=== PATIENT | male | born 1945 | race Two or more races ===

== ENCOUNTER 2019-08-03 16:31 | Inpatient (IN) | payer MEDICAID, OTHER ==
[~2019-08-03] VITALS: Ht 165.1 cm; Wt 52.5 kg
[2019-08-03 17:28] LABS: Basophils # (auto) 0 10 ^3/uL (0-0.2); Basophils % (auto) 0.1 % (0.0-2.0); Eosinophils # (auto) 0 10 ^3/uL (0-0.8); Hemoglobin 12.2 g/dL (13.5-17.5); Monocytes # (auto) 0.8 10 ^3/uL (0-1.3); Platelet Count (auto) 460 10^3/uL (140-450)
[2019-08-03 17:29] LABS: Hematocrit 36.2 % (41.0-53.0); Lymphocytes % (auto) 7.3 % (10.0-50.0); Mean Corpuscular Hemoglobin 29.9 pg (28.0-32.0); Mean Corpuscular Hgb Conc. 33.7 g/dL (32.0-36.0); Mean Corpuscular Volume 88.9 fL (80.0-100.0); Monocytes % (auto) 5.8 % (0.0-12.0); Neutrophils # (auto) 11.9 10 ^3/uL (1.6-8.6); Neutrophils % (auto) 86.8 % (37.0-80.0); Red Blood Cells 4.07 10^6/uL (4.5-5.90); Red Cell Distribution Width 13.9 % (11.8-14.3); White Blood Cell 13.7 10^3/uL (4.4-10.8)
[2019-08-03 17:42] LABS: Albumin 3.2 g/dL (3.4-5.0); Anion Gap 11 (5-15); Blood Alcohol < 3.0 mg/dL (0-5); Blood Urea Nitrogen 24 mg/dL (7-18); Carbon Dioxide 27 mmol/L (21-32); Chloride 93 mmol/L (98-107); Magnesium 2.4 mg/dL (1.6-2.6); Potassium 4.3 mmol/L (3.5-5.1); Sodium 131 mmol/L (136-145)
[2019-08-03 17:44] LABS: INR 1.03 (0.9-1.15); Partial Thromboplastin Time 23.9 sec (23.64-32.05)
[2019-08-03 17:46] LABS: Lactic Acid w/Reflex 4.6 mmol/L (0.4-2.0)
[2019-08-03 17:47] LABS: Urine Bacteria NONE SEEN /hpf (None Seen); Urine Blood 2+ /uL (Negative); Urine Specific Gravity 1.028 (1.001-1.035); Urine WBC 1 /hpf (0 - 3)
[2019-08-03 17:48] LABS: Alanine Aminotransferase 151 U/L (16-61); Alkaline Phosphatase 379 U/L (45-117); Aspartate Aminotransferase 105 U/L (15-37); BUN/Creatinine Ratio 13.5; Bilirubin, Total 1.9 mg/dL (0.2-1.0); GFR African American 48 mL/min; GFR Non-African American 40 mL/min; Total Protein 8.9 g/dL (6.4-8.2)
[2019-08-03 17:52] LABS: Glucose 443 mg/dL (74-106)
[2019-08-03 17:55] LABS: Alcohol, Urine < 3.0 mg/dL (0-5); Amphetamine Screen, Urine NEGATIVE (NEGATIVE); Barbiturate Scree,Urine NEGATIVE (NEGATIVE); Benzodiazephine Screen, Urine NEGATIVE (NEGATIVE); Cannabinoid Screen, Urine NEGATIVE (NEGATIVE); Cocaine Screen, Urine NEGATIVE (NEGATIVE); Opiate Scree,Urine NEGATIVE (NEGATIVE); Phencyclidine Screen, Urine NEGATIVE (NEGATIVE)
[2019-08-03] MEDS ORDERED: PIPERACILLIN-TAZOB 2.25GM 50 ML IV ONE (18:00)
[2019-08-03] MEDS ORDERED: metroNIDAZOLE 500MG/100ML 100 ML IV ONE (18:00)
[2019-08-03] MEDS ORDERED: SODIUM CHLORIDE 0.9% 1,000 ML IV ONE ×2 (18:00→18:15)
[2019-08-03] MEDS ORDERED: InsuLIN REG 1unit/0.01ml Soln (100units/ml) IV ONE (18:45)
[2019-08-03] MEDS ORDERED: VANCOMYCIN PER PHARMACY 0 MG IV SCH (19:15)
[2019-08-03] MEDS ORDERED: ONDANSETRON HCL 4 MG/2 ML VIAL IV PRN (19:15)
[2019-08-03] MEDS ORDERED: DEXTROSE (50%) 50ML SYRG IV PRN (19:15)
[2019-08-03] MEDS ORDERED: NITROGLYCERIN 0.4 MG SL TAB SL PRN (19:15)
[2019-08-03] MEDS ORDERED: MORPHINE SULF INJ 2 MG/ML SYRINGE 1ML IV PRN ×2 (19:15)
[2019-08-03] MEDS: SODIUM CHLORIDE 0.9% 1,000 ML IV SCH (19:50)
[2019-08-03] MEDS: levoFLOXacin 500MG 100 ML IV SCH (19:55)
[2019-08-03] MEDS: ACCU-CHEK COMFORT CURVE STRIP VI SCH (20:17)
[2019-08-03] MEDS: InsuLIN REG 1unit/0.01ml Soln (100units/ml) SC SCH (20:18)
[2019-08-03 20:40] VITALS: BP 129/73
[2019-08-03] MEDS ORDERED: ACETAMINOPHEN 650 MG RECT SUPP PR ONE (20:40)
--- NOTE | 2019-08-03 20:40 | NUR ---
Admit to [facility] KRISTEN AYALA admitted to [facility] via gurney on desk monitor. Patient transferred to bed, connected to unit monitoring , and weighed by bed scale. Patient is lethargic, fatigued, and not answering questions. Gusman cath draining yellow urine to gravity. Normal Saline infusing at 125 ml/h. Patient was just given Tylenol suppository prior to arriving on the unit. Physical assessment completed, see interventions. Attempted to Instruct on POC and to call for assist as needed. bed is in the lowest position with side rails up x2, Bed alarm on. Cooling measures in place.
[2019-08-03] MEDS ORDERED: ACETAMINOPHEN 650 MG RECT SUPP PR PRN (20:45)
--- NOTE | 2019-08-03 20:50 | NUR ---
Bed bath performed Gown changed. Partial linen change.
[2019-08-03] MEDS ORDERED: VANCOMYCIN 1GM/250ML 250 ML IV ONE (21:00)
[2019-08-04] VITALS: BP 116/65
[2019-08-04] MEDS: metroNIDAZOLE 500MG/100ML 100 ML IV SCH ×3 (01:23→17:57)
[2019-08-04 04:00] VITALS: BP 121/66
[2019-08-04] MEDS: InsuLIN REG 1unit/0.01ml Soln (100units/ml) SC SCH ×6 (04:00→21:27)
[2019-08-04 05:16] LABS: Basophils # (auto) 0 10 ^3/uL (0-0.2); Basophils % (auto) 0.4 % (0.0-2.0); Eosinophils # (auto) 0 10 ^3/uL (0-0.8); Eosinophils % (auto) 0.2 % (0.0-7.0); Hematocrit 31.5 % (41.0-53.0); Hemoglobin 10.7 g/dL (13.5-17.5); Lymphocytes # (auto) 2.1 10 ^3/uL (0.4-5.4); Mean Corpuscular Hemoglobin 30.1 pg (28.0-32.0); Mean Corpuscular Hgb Conc. 33.9 g/dL (32.0-36.0); Mean Corpuscular Volume 88.7 fL (80.0-100.0); Monocytes # (auto) 1.3 10 ^3/uL (0-1.3); Monocytes % (auto) 9.6 % (0.0-12.0); Neutrophils # (auto) 10.5 10 ^3/uL (1.6-8.6); Neutrophils % (auto) 74.8 % (37.0-80.0); Platelet Count (auto) 380 10^3/uL (140-450); Red Blood Cells 3.55 10^6/uL (4.5-5.90); Red Cell Distribution Width 14.1 % (11.8-14.3)
[2019-08-04 05:40] LABS: Calcium 8.3 mg/dL (8.5-10.1); Potassium 3.6 mmol/L (3.5-5.1)
[2019-08-04 05:42] LABS: BUN/Creatinine Ratio 16.1
[2019-08-04] MEDS: SODIUM CHLORIDE 0.9% 1,000 ML IV SCH ×3 (06:05→13:22)
[2019-08-04] MEDS: ACCU-CHEK COMFORT CURVE STRIP VI SCH ×6 (06:05→21:27)
--- NOTE | 2019-08-04 07:00 | NUR ---
END OF SHIFT PATIENT IS LAYING IN BED WITH EYES CLOSED. NO SOB, DISTRESS OR PAIN NOTED. VS STABLE. WILL GIVE REPORT AND ENDORSE CARE TO THE DAY SHIFT RN.
[2019-08-04 07:40] VITALS: BP 126/66
--- NOTE | 2019-08-04 08:00 | NUR ---
OPENING SHIFT NOTE: Received report from NOC RNSari. Assumed care of patient. Received patient lying in bed, connected to bedside monitor, no s/s of distress noted. Patient is Greek speaking. Denies pain when asked by shaking head. Patient opens eyes to name, but doesn't answer questions when asked and inconsistent in following commands. Patient on RA with O2 sats 98%. IVF of NS running at 125ml/hr in left hand #20 and has additional IV to left wrist #20. Gusman draining to gravity yellow urine output. Patient pending GI consult for abdominal pain. Bed in lowest position, rails x2 up and call light within reach. Will continue to monitor q1hr/PRN.
--- NOTE | 2019-08-04 09:30 | NUR ---
MD: Dr Nelson to see patient for GI consult. Orders received.
--- NOTE | 2019-08-04 10:30 | NUR ---
MD: Dr Nevarez at bedside to see patient. Orders received. MD to attempt to contact family to get patient's baseline neuro status.
--- NOTE | 2019-08-04 11:20 | NUR ---
T/C from patient's family. Password verified. Updated family on plan of care. Family states that prior to admission patient was able to have full conversations with them and when he stopped talking they brought him to the ER.
[2019-08-04 11:40] VITALS: BP 118/66
[2019-08-04] MEDS ORDERED: DEXTROSE (50%) 50ML SYRG IV PRN (13:00)
[2019-08-04] MEDS ORDERED: ASPirin-EC 81 mg tab PO ONE (13:15)
[2019-08-04] MEDS ORDERED: PANTOPRAZOLE 40 MG TAB PO ONE (13:15)
--- NOTE | 2019-08-04 13:15 | NUR ---
1315 medications held due to patient not responding and following directions. Swallow eval pending.
--- NOTE | 2019-08-04 14:13 | NUR ---
Patient to radiology for CT chest via bed on test tube maker.
--- NOTE | 2019-08-04 14:40 | NUR ---
Patient returned from radiology escorted by MERNA Leavitt RN. Per RN, patient didn't respond when spoken to in azeri. Patient remains alert but unresponsive. Updated family on telephone via aircraft skin burnisher, Shania parachute mender, on plan of care. All questions answered.
[2019-08-04] MEDS ORDERED: VANCOMYCIN 1GM/250ML 250 ML IV SCH (15:00)
[2019-08-04 15:40] VITALS: BP 117/65
--- NOTE | 2019-08-04 15:46 | NUR ---
Dayana, Speech therapy, at bedside doing swallow eval.
--- NOTE | 2019-08-04 15:52 | NUR ---
ATTEMPTED SWALLOW EVALUATION. GUEST ASSOCIATE ASSISTING WITH FRENCH TRANSLATION. PATIENT REFUSED TO OPEN MOUTH FOR SWALLOW EVALUATION. SEVERAL TYPES OF BOLUS ATTEMPTED WITH NO RESPONSE FROM PATIENT. UNABLE TO DETERMINE IF PATIENT IS SAFE FOR PO INTAKE. NURSING NOTIFIED.
--- NOTE | 2019-08-04 16:46 | NUR ---
PT at bedside to attempt eval. Asked to hold off due to language barrier and inability to follow commands. PT will eval tomorrow if appropriate.
--- NOTE | 2019-08-04 19:00 | NUR ---
CLOSING SHIFT NOTE: Patient resting in bed, no s/s of pain. Patient remain alert but unresponsive. Report given to NOC Sari SILVA.
[2019-08-04] MEDS: levoFLOXacin 500MG 100 ML IV SCH (19:18)
[2019-08-04 20:00] VITALS: BP 98/59
--- NOTE | 2019-08-04 20:00 | NUR ---
Shift Opening Note Received patient laying in bed with eyes closed. Open eyes when touched and spoken to occasionally, Does not answer questions or follow commands. Gusman cath draining yellow urine to gravity. Normal Saline infusing at 100 ml/h. Physical assessment completed, see interventions. Attempted to Instruct on POC and to call for assist as needed. Bed is in the lowest position with side rails up x2, Bed alarm on.
[2019-08-04] MEDS ORDERED: LORazepam 2MG/ML-1ML VIAL IV PRN (21:00)
--- NOTE | 2019-08-04 21:00 | NUR ---
DR. PINEDA AT BEDSIDE ASSESSING PATIENT
[2019-08-04] MEDS: ATORVASTATIN 20 MG TAB PO SCH (21:25)
--- NOTE | 2019-08-04 21:30 | NUR ---
SPOKE WITH FAMILY UPDATED THEM ON PATIENTS STATUS AND POC.
[2019-08-04 23:32] LABS: Albumin 2.3 g/dL (3.4-5.0)
[2019-08-04 23:35] LABS: Bilirubin, Direct 1.3 mg/dL (0-0.2); Bilirubin, Total 1.7 mg/dL (0.2-1.0); Total Protein 6.8 g/dL (6.4-8.2)
[2019-08-05] VITALS (7 sets, daily range): BP systolic 107–128; BP diastolic 58–73
--- NOTE | 2019-08-05 01:30 | NUR ---
MORNING HYGIENE CARE FULL BED BATH PERFORMED USING WARM SOAPY WASH CLOTHES. GOWN CHANGED. PARTIAL LINEN CHANGED. PATIENT REPOSITIONED FOR COMFORT. TOLERATED IT WELL.
[2019-08-05] MEDS: metroNIDAZOLE 500MG/100ML 100 ML IV SCH ×3 (01:39→18:07)
[2019-08-05 05:35] LABS: Basophils # (auto) 0 10 ^3/uL (0-0.2); Basophils % (auto) 0.5 % (0.0-2.0); Eosinophils # (auto) 0.1 10 ^3/uL (0-0.8); Eosinophils % (auto) 0.8 % (0.0-7.0); Hemoglobin 11.1 g/dL (13.5-17.5); Lymphocytes # (auto) 1.8 10 ^3/uL (0.4-5.4); Lymphocytes % (auto) 21.3 % (10.0-50.0); Mean Corpuscular Hemoglobin 29.9 pg (28.0-32.0); Mean Corpuscular Hgb Conc. 33.6 g/dL (32.0-36.0); Neutrophils # (auto) 5.8 10 ^3/uL (1.6-8.6); Neutrophils % (auto) 66.4 % (37.0-80.0); Platelet Count (auto) 369 10^3/uL (140-450); Red Cell Distribution Width 13.7 % (11.8-14.3); White Blood Cell 8.7 10^3/uL (4.4-10.8)
[2019-08-05] MEDS: InsuLIN REG 1unit/0.01ml Soln (100units/ml) SC SCH ×4 (05:39→22:36)
[2019-08-05] MEDS: ACCU-CHEK COMFORT CURVE STRIP VI SCH ×4 (05:39→22:07)
[2019-08-05] MEDS: SODIUM CHLORIDE 0.9% 1,000 ML IV SCH ×2 (05:46→09:04)
[2019-08-05 05:55] LABS: Albumin 2.3 g/dL (3.4-5.0); BUN/Creatinine Ratio 19.4; Calcium 8.1 mg/dL (8.5-10.1); Potassium 3.6 mmol/L (3.5-5.1)
[2019-08-05 05:59] LABS: Bilirubin, Total 1.6 mg/dL (0.2-1.0); Total Protein 6.6 g/dL (6.4-8.2)
--- NOTE | 2019-08-05 07:18 | NUR ---
END OF SHIFT REPORT GIVEN AND CARE ENDORSED TO TONNY SILVA.
--- NOTE | 2019-08-05 07:45 | NUR ---
OPENING SHIFT NOTE: Received report from NOC RNSari. Assumed care of patient. Received patient lying in bed, connected to bedside monitor, no s/s of distress noted. Patient is Cook Islander speaking. Denies pain when asked. Patient opens eyes to name, but doesn't answer questions when asked and inconsistent in following commands. Patient on RA with O2 sats 98%. IVF of NS running at 100ml/hr in left hand #20 and has additional IV to left wrist #20. Gusman draining to gravity yellow urine output. Patient pending MRI brain, swallow eval and PT eval. Bed in lowest position, rails x2 up and call light within reach. Will continue to monitor q1hr/PRN.
[2019-08-05] MEDS: ENOXAPARIN SOD 40 MG/0.4 ML SYRINGE SC SCH (09:18)
--- NOTE | 2019-08-05 09:44 | NUR ---
Unable to give patient oral medications due at 1000. Patient is alert but still not responding verbally and following commands. Swallow eval is still pending after patient not being cooperative on previous attempt.
[2019-08-05] MEDS: PANTOPRAZOLE 40 MG TAB PO SCH (09:46)
[2019-08-05] MEDS: ASPirin-EC 81 mg tab PO SCH (09:46)
[2019-08-05] MEDS ORDERED: levoFLOXacin 250MG 50 ML IV SCH (10:00)
[2019-08-05] MEDS: levoFLOXacin 500MG 100 ML IV SCH (10:32)
--- NOTE | 2019-08-05 11:22 | NUR ---
MD: Dr Nevarez at bedside to see patient. Orders received.
--- NOTE | 2019-08-05 12:07 | NUR ---
information technology technician at bedside.
--- NOTE | 2019-08-05 12:18 | NUR ---
cnc technician unable to do test due to patient not cooperating and following directions.
--- NOTE | 2019-08-05 12:55 | NUR ---
SPOKE WITH DR BERNABE NEW ORDERS RECEIVED, WILL INFORM MRI DEPARTMENT OF PATIENTS TELEMETRY STATUS
--- NOTE | 2019-08-05 13:02 | NUR ---
Pt is currently listed as having no current insurance. states pt is retired. Discussed with patient eligibility options for medical coverage based on their current situation. Pt referred to Isidro Campos, [facility] Documentation Designer, to assist with process for [facility] insurance coverage. Advised pt that additional information regarding d/c planning would be provided prior to their discharge. Will Follow up with Isidro regarding the insurance status. Addendum: 08/05/19 at 1315 by PETE MEJIA SS Amended: Links added.
--- NOTE | 2019-08-05 13:16 | NUR ---
MRI TRANSPORT TEAM AT BEDSIDE TO TAKE PATIENT TO MRI TRANSFERRED TO [facility], PATIENT TOLERATED TRANSFER. VITALS REMAINED STABLE.
--- NOTE | 2019-08-05 15:10 | NUR ---
master control technician at bedside.
[2019-08-05] MEDS: D5W/SOD CHLO 0.9% 1,000 ML IV SCH (15:25)
--- NOTE | 2019-08-05 15:37 | NUR ---
Report given to SHIRA Persaud. Patient to be transferred to [address] after returning from radiology for CT sinus. Personal belonging and chart to be walked over to unit.
--- NOTE | 2019-08-05 15:40 | NUR ---
Notified patient's family of transfer.
--- NOTE | 2019-08-05 15:45 | NUR ---
Pt Arrived on Unit Pt arrived on unit to bed 89B. Pt is a/o; hard to tell level due to pt's current condition. Safety measures maintained with call light within reach, bed in lowest position and side rails up. Will continue to monitor.
[2019-08-05 15:59] LABS: Hepatitis B Surface Antibody Negative
[2019-08-05 16:37] LABS: Hepatitis A Total Antibody Positive
[2019-08-05 16:40] LABS: Hepatitis B Surface Antigen Negative (Negative)
[2019-08-05 16:41] LABS: Hepatitis B Core Total AB Negative; Hepatitis C Antibody Negative (Negative)
--- NOTE | 2019-08-05 18:11 | NUR ---
EEG- UNABLE TO COMPLETE DUE TO PT'S UNABLE TO FOLLOW COMMANDS. WILL ATTEMPT AGAIN TOMORROW ON 08/06/2019.
--- NOTE | 2019-08-05 18:20 | NUR ---
Dr Felix at Bedside MD to see pt.
--- NOTE | 2019-08-05 18:44 | NUR ---
Pt Given Tray Under my observation, pt was able to eat clear liquid tray provided to him. Placed pt in high fowlers and assisted pt in eating his tray. Pt has no difficulty eating and no s/s of swallowing difficulties noted. Will continue to monitor and endorse to NOC shift.
--- NOTE | 2019-08-05 19:00 | NUR ---
Opening Shift Note Assumed care of patient, awake and alert. Pt sitting in the upright position talking on the phone to family. Patient is Vietnamese speaking. No S/S of distress/SOB or pain. Instructed on POC and to call for assist PRN, will continue to monitor for changes Q1hr and PRN. Patient in lowest possible position with bed rails up x2 and call light within reach.
[2019-08-05] MEDS: ATORVASTATIN 20 MG TAB PO SCH (22:07)
[2019-08-06] MEDS: metroNIDAZOLE 500MG/100ML 100 ML IV SCH ×2 (02:13→08:30)
[2019-08-06 05:34] LABS: Basophils # (auto) 0 10 ^3/uL (0-0.2); Basophils % (auto) 0.5 % (0.0-2.0); Eosinophils # (auto) 0.1 10 ^3/uL (0-0.8); Eosinophils % (auto) 2.3 % (0.0-7.0); Hematocrit 32.5 % (41.0-53.0); Hemoglobin 11.2 g/dL (13.5-17.5); Lymphocytes # (auto) 1.8 10 ^3/uL (0.4-5.4); Lymphocytes % (auto) 31.4 % (10.0-50.0); Mean Corpuscular Hemoglobin 30.4 pg (28.0-32.0); Mean Corpuscular Hgb Conc. 34.6 g/dL (32.0-36.0); Mean Corpuscular Volume 87.9 fL (80.0-100.0); Monocytes # (auto) 0.9 10 ^3/uL (0-1.3); Monocytes % (auto) 15.3 % (0.0-12.0); Neutrophils # (auto) 2.8 10 ^3/uL (1.6-8.6); Neutrophils % (auto) 50.5 % (37.0-80.0); Nucleated Red Blood Cells % 0.1 %; Platelet Count (auto) 362 10^3/uL (140-450); Red Blood Cells 3.69 10^6/uL (4.5-5.90); Red Cell Distribution Width 13.4 % (11.8-14.3); White Blood Cell 5.6 10^3/uL (4.4-10.8)
[2019-08-06 05:48] VITALS: BP 105/68
[2019-08-06 05:55] LABS: Albumin 2.3 g/dL (3.4-5.0); Bilirubin, Direct 1.2 mg/dL (0-0.2)
[2019-08-06 05:58] LABS: Bilirubin, Total 1.5 mg/dL (0.2-1.0); Total Protein 6.6 g/dL (6.4-8.2)
[2019-08-06] MEDS: ACCU-CHEK COMFORT CURVE STRIP VI SCH ×2 (06:16→11:10)
[2019-08-06] MEDS: InsuLIN REG 1unit/0.01ml Soln (100units/ml) SC SCH ×2 (06:19→11:16)
--- NOTE | 2019-08-06 07:41 | NUR ---
Opening Note Assumed pt care from [facility] nurse. Pt is a/ox3-4; hard to tell due to language barrier. Pt is able to follow commands and responds by shaking head yes or no, but does not respond to questions all of the time. Pt is currently sitting in high fowlers eating breakfast with no difficulty; assessed pt while eating and he is having no difficulty swallowing. Discussed POC with pt. Safety measures maintained with call light within reach, bed in lowest position and side rails up. Will continue to monitor.
[2019-08-06] MEDS: D5W/SOD CHLO 0.9% 1,000 ML IV SCH (08:30)
[2019-08-06 09:00] VITALS: BP 113/62
[2019-08-06] MEDS: ENOXAPARIN SOD 40 MG/0.4 ML SYRINGE SC SCH (09:32)
[2019-08-06] MEDS: PANTOPRAZOLE 40 MG TAB PO SCH (09:32)
[2019-08-06] MEDS: ASPirin-EC 81 mg tab PO SCH (09:32)
[2019-08-06] MEDS: levoFLOXacin 500MG 100 ML IV SCH (09:32)
--- NOTE | 2019-08-06 09:58 | NUR ---
Ambulation Per Marli with PT, pt was able to ambulate in [place] with standby assist. Will continue to enforce ambulation. Will continue to monitor.
--- NOTE | 2019-08-06 10:40 | NUR ---
Dr Nelson at Bedside MD to see pt. Informed pt of eating and no complains associated with eating. No new orders at this time.
--- NOTE | 2019-08-06 11:24 | NUR ---
Dr Mcgee at Bedside MD to see pt. Aware of pt tolerating diet and no complaints at this time. MD will speak to pt's family and possibly d/c home today. Will continue to monitor.
--- NOTE | 2019-08-06 11:52 | NUR ---
Gusman Catheter D/C'ed Gusman catheter d/c'ed for pt's d/c. 850mL of urine in bag. Pt instructed to use urinal and to call if needs assistance. Will continue to monitor.
--- NOTE | 2019-08-06 11:58 | NUR ---
Contacted Pt's Daughter Spoke with pt's daughterMaribell at [phone]. They are aware of pt's d/c. Spoke with them about POC and told them that I would contact them once the d/c was complete and pt is ready for tack picker. Pt's daughter verbalized understanding. Addendum: 08/06/19 at 1303 by JR COX RN RN Spoke with pt's daughter again. Aware of d/c and states on her way to tack picker pt.
[2019-08-06 12:15] VITALS: BP 113/62
[2019-08-06 13:00] VITALS: BP 110/64
--- NOTE | 2019-08-06 13:10 | NUR ---
IVs DC'ed and Tele 74 Removed and Sent Back IVs to pt's L wrist and hand d/c'ed. Catheters were removed fully intact. Sites are asymptomatic. Pressure was applied to both sites for 3 minutes with gauze and then wrapped in coban. Pt instructed to keep dressings on for 30 minutes. Tele 74 removed and sent back to ICU Staff made aware.
--- NOTE | 2019-08-06 14:09 | NUR ---
Pt D/C'ed off Unit Pt d/c'ed off unit via wheelchair. Pt is a/ox3-4 at the time of discharge; hard to tell due to language barrier. All d/c infor given to pt's daughter and granddaughter. All questions were answered. Family is aware of pt's need to f/u with a PCP. Pt has all belongings and prescriptions.
--- NOTE | 2019-08-06 14:10 | NUR ---
Nutrition Assessment Notes Please refer to link for full assessment notes. Est energy needs: 5441-3985 kcals (25-30 kcal/kgBW) Est protein needs: 53-58 gms/day (1.0-1.1 gm/kgBW) Will continue to monitor and reassess prn. Addendum: 08/06/19 at [address] Amended: Links added.
== END 2019-08-06 14:08 | disposition home or self-care (01) | DRG 720 ==
LOC: ER 16:31 → OVERFLOW 16:32 → DOU IN ICU 20:40 → TELE-WESTW 08-05 16:17
PROVIDERS: ADMIT Nurse Practitioner Acute Care; ATTEND Internal Medicine
DX: A41.9 Sepsis, unspecified organism (principal); N17.0 Acute kidney failure with tubular necrosis; G93.41 Metabolic encephalopathy; E44.0 Moderate protein-calorie malnutrition; E87.1 Hypo-osmolality and hyponatremia; Z68.1 Body mass index [BMI] 19.9 or less, adult; D64.9 Anemia, unspecified; E11.22 Type 2 diabetes mellitus with diabetic chronic kidney disease; F03.90 Unspecified dementia, unspecified severity, without behavioral disturbance, psychotic disturbance, mood disturbance, and anxiety; F17.200 Nicotine dependence, unspecified, uncomplicated; D63.8 Anemia in other chronic diseases classified elsewhere; K52.9 Noninfective gastroenteritis and colitis, unspecified; E11.65 Type 2 diabetes mellitus with hyperglycemia; N18.3 Chronic kidney disease, stage 3 (moderate); Z79.4 Long term (current) use of insulin; Z83.3 Family history of diabetes mellitus; Z90.49 Acquired absence of other specified parts of digestive tract; Z79.899 Other long term (current) drug therapy
CPT/HCPCS: 36415; 70450; 70486; 70551; 71045; 71250; 74176; 76700; 80048; 80053; 80061; 80076; 80307; 80320; 81001; 82140; 82607; 82746; 82962; 83036; 83605; 83690; 83735; 84443; 84484; 85025; 85610; 85730; 86704; 86706; 86708; 86803; 87040; 87081; 87086; 87340; 87804; 93005; 93306; 93886; 96361; 96365; 96367; 96375; 97163; G0378; J1815; J1956; J2543; J3490; J7042